=== PATIENT | female | born 1995 | race Caucasian/White ===

== ENCOUNTER 2020-11-22 13:53 | Emergency (ER) | payer OTHER, SELFPAY ==
[2020-11-22] VITALS (7 sets, daily range): BP systolic 125–143; BP diastolic 64–89; PULSE 81–105; RESP 13–16; TEMP 36.4; O2SAT 98–100
--- NOTE | ~2020-11-22 | XR_ITS ---
EXAMINATION: XR chest 1V portable DATE: 11/22/2020 15:21 INDICATION: Cough. Shortness of breath. TECHNIQUE: A single frontal view of the chest was obtained. COMPARISON: None. FINDINGS: The chest demonstrates clear lungs without pneumonia, pleural effusion, or pneumothorax. Th e heart size is normal. IMPRESSION: 1. No acute cardiopulmonary disease. Reviewed, dictated and finalized at location A. [employer]
--- NOTE | 2020-11-22 15:41 | ED.GENADULT ---
HPI - General Adult General Chief complaint: Anxiety <Chris Narvaez PA-C - Last Filed: 11/25/20 21:25> Stated complaint: panic attack, COVID+ 8 days ago <Chris Narvaez PA-C - Last Filed: 11/25/20 21:25> Time Seen by Provider: 11/22/20 14:49 <Chris Narvaez PA-C - Last Filed: 11/25/20 21:25> Source: patient <Chris Narvaez PA-C - Last Filed: 11/25/20 21:25> Mode of arrival: ambulatory <Chris Narvaez PA-C - Last Filed: 11/25/20 21:25> Limitations: no limitations <Chris Narvaez PA-C - Last Filed: 11/25/20 21:25> History of Present Illness HPI narrative: Patient is a 25-year-old female who presents for right-sided chest discomfort that occurred today patient panicked and began to feel that she may be having a heart attack and presented to the ER for evaluation patient on arrival to emergency department is in the room in no distress feeling much better noting that she feels as though she had an anxiety attack patient notes she is currently COVID-19 positive and was tested because an individual she had been with 8 days ago had a positive test the patient notes she herself has no symptoms and on arrival presents in no distress resting comfortably in the room <Chris Narvaez PA-C - Last Filed: 11/25/20 21:25> Related Data Allergies/adverse reactions: Allergies Allergy/AdvReac Type Severity Reaction Status Date / Time No Known Allergies Allergy Verified 09/19/18 01:57 <Chris Narvaez PA-C - Last Filed: 11/25/20 21:25> Review of Systems Review of Systems: All systems reviewed & are unremarkable except as noted in HPI and below <Chris Narvaez PA-C - Last Filed: 11/25/20 21:25> [facility] Past Medical History Medical History: Medical History (Updated 11/23/20 @ 00:00 by Karthik Jameson) ADHD Anxiety <Chris Narvaez PA-C - Last Filed: 11/25/20 21:25> Social History Social History: Social History (Updated 11/22/20 @ 15:43 by Chris Leon Young, PA-C) Tobacco type: e-cigarettes/vaping Gender identity (if verbalized by the patient): Female <CLEO Durham Last Filed: 11/25/20 21:25> Exam Narrative: Exam Narrative: GENERAL: Well-appearing, well-nourished, and in no acute distress. HEAD: Normocephalic, atraumatic. EYES: PERRLA and EOMI. ENT: Nares clear, no rhinorrhea or epistaxis. Mucous membranes moist. CHEST: Clear to auscultation. No respiratory distress. No wheezes rales or rhonchi HEART: Regular rate and rhythm. No murmur heard. Normal peripheral pulses. ABDOMEN: Soft, nontender, nondistended EXTREMITIES: Normal range of motion. No edema. SKIN: Warm, dry, no rash. NEURO: No focal deficits. Alert and oriented x3. PSYCH: Normal mood and affect. <CLEO Durham Last Filed: 11/25/20 21:25> Course Course Emergency Course: Patient in the room no distress likely anxiety attack symptoms have resolved in no distress felt appropriate for outpatient reevaluation <CLEO Durham Last Filed: 11/25/20 21:25> Vital Signs Vital signs: Vital Signs Temperature 36.4 C 11/22/20 14:09 Pulse Rate 105 H 11/22/20 14:09 Respiratory Rate 16 11/22/20 14:09 Blood Pressure 143/89 H 11/22/20 14:09 Pulse Oximetry 99 11/22/20 14:09 Temperature 36.4 C 11/22/20 14:09 Pulse Rate 82 11/22/20 16:04 Respiratory Rate 15 11/22/20 16:04 Blood Pressure 131/78 11/22/20 16:04 Pulse Oximetry 100 11/22/20 16:04 <CLEO Durham Last Filed: 11/25/20 21:25> Vital Signs Temperature 36.4 C 11/22/20 14:09 Pulse Rate 105 H 11/22/20 14:09 Respiratory Rate 16 11/22/20 14:09 Blood Pressure 143/89 H 11/22/20 14:09 Pulse Oximetry 99 11/22/20 14:09 Temperature 36.4 C 11/22/20 14:09 Pulse Rate 82 11/22/20 16:04 Respiratory Rate 15 11/22/20 16:04 Blood Pressure 131/78 11/22/20 16:04 Pulse Oximetry 100 11/22/20 16:04 <Brendon Osorio,
== END 2020-11-22 16:07 | disposition home or self-care (01) ==
PROVIDERS: Emergency Provider Emergency Medicine; PCP Emergency Medicine
DX: F41.9 Anxiety disorder, unspecified (principal); U07.1 COVID-19; F17.290 Nicotine dependence, other tobacco product, uncomplicated
CPT/HCPCS: 71045; 99283

== ENCOUNTER 2021-10-28 15:43 | Emergency (ER) | payer OTHER, SELFPAY ==
--- NOTE | ~2021-10-28 | XR_ITS ---
EXAMINATION: XR abdomen/kub 1V EXAM DATE: 10/28/2021 16:19 INDICATION: acute constipation/bloat feeling 6 days/pain 1 day low abdo. TECHNIQUE: Frontal projection(s) of the abdomen for interpretation. Comparison is made to prior exami nation from 09/19/2018. FINDINGS: There is expected amount of colonic stool and gas. No small bowel dilation, nonobstructiv e bowel gas pattern. There are no suspicious calcifications identified. There is no organomegaly suspected. The bones are unremarkable. IMPRESSION: Unremarkable abdomen x-ray exam. Reviewed, dictated and finalized at location G. L DBA
[2021-10-28 15:53] VITALS: BP 121/100; PULSE 88; RESP 18; TEMP 37.3; O2SAT 100
[2021-10-28 16:06] VITALS: BP 122/86
--- NOTE | 2021-10-28 16:08 | ED.ABDPAIN ---
HPI - Abdominal Pain General Chief Complaint: Abdominal Pain Stated Complaint: Constipation Time Seen by Provider: 10/28/21 16:05 Source: patient, RN notes reviewed and old records reviewed History of Present Illness HPI narrative: 26-year-old female who presents to [facility] with complaints of abdominal bloating and has not had bowel movement for 1 week duration. Patient states that she is passing gas but she feels bloated. Patient reports that she has had problems with constipation since she was in the 2nd grade. Patient has taken mag citrate today and has not gone to the bathroom yet. She states that she has taken other laxatives in the past couple days but no stools yet. Patient denies any daily Miralax or stool softeners on a routine basis. She is scheduled for a colonoscopy the end of November with Dr Radha Dias Related Data Home Medications Medication Instructions Recorded Confirmed melatonin 10 mg PO HS PRN 10/28/21 10/28/21 Allergies Allergy/AdvReac Type Severity Reaction Status Date / Time No Known Allergies Allergy Verified 10/28/21 15:50 Review of Systems Review of Systems: CONSTITUTIONAL: Denies fever, chills, or sweats. EYES: Denies visual changes, redness, or discharge. ENT: Denies rhinorrhea, congestion, sore throat, or otalgia. CARDIOVASCULAR: Denies chest pain, palpitations, or edema. RESPIRATORY: Denies cough or dyspnea. GASTROINTESTINAL: Denies any acute abdominal pain, nausea, vomiting, or diarrhea,reports bloating sensation but is passing gas GENITOURINARY: Denies dysuria or hematuria. SKIN: Denies rash or itching. MUSCULOSKELETAL: Denies back pain, joint pain, or myalgia. NEUROLOGIC: Denies headache, numbness, or weakness. PSYCHIATRIC: Denies anxiety or depression. All systems reviewed & are unremarkable except as noted in HPI and below PMFSH Past Medical History Medical History (Updated 10/28/21 @ 17:00 by Altagracia Cespedes NP) ADHD Anxiety Constipation Surgical History Surgical History (Updated 10/28/21 @ 17:01 by Altagracia Cespedes NP) Hx of breast reduction, elective Social History Social History Smoking status: Former smoker Tobacco type: e-cigarettes/vaping Alcohol intake: current Drinks per week: 2 Substance use: never Substance use type: does not use Gender identity (if verbalized by the patient): Female Spiritual care concerns: No Comments At time of signature, agree with nursing past medical, surgical, social and family history. There is no relevant family history pertinent to the presenting complaint Exam Narrative: GENERAL: Well-appearing, well-nourished, and in no acute distress. HEAD: Normocephalic, atraumatic. EYES: PERRLA and EOMI. ENT: Nares clear, no rhinorrhea or epistaxis. Mucous membranes moist.TM's normal with good light reflex, throat pink with no lesions or exudates or tonsil enlargement. NECK: Supple.no lymphadenopathy CHEST: Clear to auscultation. No respiratory distress.SAO2 100% on room air HEART: Regular rate and rhythm. No murmur heard. Normal peripheral pulses. ABDOMEN: Soft, nontender to palpation, reports feelings of bloating, nondistended, normal active bowel sounds in all quadrants. EXTREMITIES: Normal range of motion. No edema. SKIN: Warm, dry, no rash. NEURO: No focal deficits. Alert and oriented x3. Course Course Level of Care: Express Care Visit Vital Signs Vital signs: Vital Signs Temperature 37.3 C 10/28/21 15:53 Pulse Rate 88 10/28/21 15:53 Respiratory Rate 18 10/28/21 15:53 Blood Pressure 121/100 H 10/28/21 15:53 Pulse Oximetry 100 10/28/21 15:53 Temperature 37.3 C 10/28/21 15:53 Pulse Rate 88 10/28/21 15:53 Respiratory Rate 18 10/28/21 15:53 Blood Pressure 122/86 10/28/21 16:06 Pulse Oximetry 100 10/28/21 15:53 MDM - Abdominal Pain Differential Diagnosis Differential diagnosis: Likely abdominal pain, constipati
== END 2021-10-28 16:46 | disposition home or self-care (01) ==
PROVIDERS: Emergency Provider Registered Nurse; PCP Emergency Medicine
DX: K59.00 Constipation, unspecified (principal)
CPT/HCPCS: 74018; 99213; G0463

== ENCOUNTER 2021-12-14 00:03 | Day surgery (SDC) | payer OTHER, SELFPAY ==
[2021-12-02 13:39] VITALS: BMI 39.5
[2021-12-14 11:28] VITALS: BP 114/74; PULSE 72; RESP 18; TEMP 36.6; O2SAT 100
[2021-12-14] MEDS: LACTATED RINGERS 1,000 ML 150 ML IV CONT (11:38)
--- NOTE | 2021-12-14 12:09 | WPDANESEPPF ---
Anes - Initial Pre Proc Eval Procedure: Operation Date: 12/14/21 13:00 Proposed Procedures p Colonoscopy - Nabeel Shepherd MD Date/Time: 12/14/21 12:09 Surgeon: Nabeel Shepherd MD Pre Op Diagnosis: IBS, constipation Patient Data Age: 26 Gender: F Height: 1.57 m Weight: 100.4 kg Last Vital Signs Temp 36.6 C 12/14/21 11:28 Pulse 72 12/14/21 11:28 Resp 18 12/14/21 11:28 BP 114/74 12/14/21 11:28 Pulse Ox 100 12/14/21 11:28 Allergies Allergy/AdvReac Type Severity Reaction Status Date / Time No Known Allergies Allergy Verified 12/14/21 11:27 Home Medications Medication Instructions Recorded Confirmed Type melatonin 10 mg PO HS PRN 10/28/21 12/02/21 History Patient hx anesthesia problems: none Family hx anesthesia problems: none Results Review: All pre-operative results and documents have been reviewed as part of the pre-operative evaluation. PMFSH Past Medical History Medical History ADHD Anxiety Constipation Surgical History Surgical History Hx of breast reduction, elective Social History Social History Years smoked: 3 Smoking status: Current some day smoker Tobacco type: e-cigarettes/vaping Alcohol intake: never Drinks per week: 2 Substance use: never Substance use type: does not use Living arrangements: with family Gender identity (if verbalized by the patient): Female Spiritual care concerns: No Anes - Eval Final PreProcedure Day of Procedure 12/14/21 12:09 Patient weight: morbidly obese Heart: regular rate and rhythm Lungs: clear to auscultation Airway: Mallampati scale class II Neurological: alert and oriented Last oral intake: >/= 8 hours ASA classification: III Emergent: no Anesthetic plan: proceed Anesthesia type and monitoring: general GIVS and standard monitoring Results Review: All pre-operative results and documents have been reviewed as part of the pre-operative evaluation. Informed Consent: The patient's anesthetic plan and its attendant risks and benefits were discussed with the patient/family/POA. Questions were solicited and answers provided to the satisfaction of the patient/family/POA.
--- NOTE | 2021-12-14 13:16 | PM.HPGS ---
History of Present Illness History of Present Illness Consent: Risks, benefits, and alternatives have been discussed and questions answered. Patient agrees to proceed with procedure. Chief complaint: IBS, constipation Narrative: Anca Yoo is a 26 year old female with intermittent constipation and bloating, tried linzess but caused diarrhea. Review of Systems Constitutional: Constitutional: Denies headache(s) and Denies weakness Eyes: Eyes: Denies blurry vision ENT: Reports Normal hearing present, Denies headache(s) and Denies neck pain Cardiovascular: Cardiovascular: Denies chest pain and Denies dyspnea Respiratory: Respiratory: Denies dyspnea Gastrointestinal: Gastrointestinal: Reports no additional gastrointestinal complaints Genitourinary: Genitourinary: Denies dysuria Musculoskeletal: Musculoskeletal: Denies neck pain Integumentary/Breasts: Skin/Breast: Denies dry skin Neurologic: Reports Normal hearing present, Denies headache(s) and Denies weakness Psychiatric: Psychiatric: Denies anxiety Endocrine: Endocrine: Denies change in body appearance Hematologic/Lymphatic: Hematologic/Lymphatic: Denies easy bleeding Allergic/Immunologic: Allergic/Immunologic: Denies urticaria PMFSH Past Medical History Medical History (Updated 12/14/21 @ 13:16 by Nabeel Shepherd MD) ADHD Anxiety Constipation Surgical History Surgical History Hx of breast reduction, elective Social History Social History Years smoked: 3 Smoking status: Current some day smoker Tobacco type: e-cigarettes/vaping Alcohol intake: never Drinks per week: 2 Substance use: never Substance use type: does not use Living arrangements: with family Gender identity (if verbalized by the patient): Female Spiritual care concerns: No Meds Home Medications and Allergies Home Medications Medication Instructions Recorded Confirmed Type melatonin 10 mg PO HS PRN 10/28/21 12/02/21 History Allergies Allergy/AdvReac Type Severity Reaction Status Date / Time No Known Allergies Allergy Verified 12/14/21 11:27 Vital Signs Vital Signs - 24 hr 12/14/21 11:28 Temperature 97.9 F Pulse Rate 72 Respiratory Rate 18 Blood Pressure 114/74 Pulse Oximetry 100 Exam Const: General: comfortable and no acute distress HENMT: General nose exam: Normal nares present Eyes: General: appearance normal, both eyes and all related structures Neck: Neck: no JVD Resp: Auscultation: clear to auscultation bilaterally Cardio: Rate: regular rate Rhythm: regular rhythm GI: Inspection: non-distended GI Palp: Yes Soft to palpation Skin: General skin exam: normal color Neuro: General: gait normal Speech: normal speech Extrem: General: normal to inspection Psych: Mental Status: mental status grossly normal Assessment and Plan Assessment and plan (1) Constipation: Code(s): K59.00 - Constipation, unspecified Status: Acute Assessment and Plan: constipation
[2021-12-14 13:36] VITALS: BP 98/55; PULSE 67; RESP 22; O2SAT 98
[2021-12-14 13:46] VITALS: BP 106/63; PULSE 73; RESP 20; O2SAT 100
[2021-12-14 13:58] VITALS: BP 106/63; PULSE 54; RESP 20; O2SAT 100
== END 2021-12-14 14:05 | disposition home or self-care (01) ==
PROVIDERS: PCP Emergency Medicine; Visit Provider Internal Medicine Gastroenterology
PROC: 0DJD8ZZ Inspection of Lower Intestinal Tract, Via Natural or Artificial Opening Endoscopic (ICD-10-PCS; CPT 45378; principal; 2021-12-14 13:00)
DX: K59.00 Constipation, unspecified (principal); K58.9 Irritable bowel syndrome, unspecified; F41.9 Anxiety disorder, unspecified; F90.9 Attention-deficit hyperactivity disorder, unspecified type; F17.290 Nicotine dependence, other tobacco product, uncomplicated; E66.01 Morbid (severe) obesity due to excess calories; Z68.41 Body mass index [BMI] 40.0-44.9, adult
CPT/HCPCS: 45378; J2704; J7120